=== PATIENT | male | born 1975 | race Two or more races ===

== ENCOUNTER 2022-12-26 13:29 | Emergency (ER) | payer OTHER ==
[~2022-12-26] VITALS: Ht 170.2 cm; Wt 103.6 kg
[2022-12-26 16:54] VITALS: BP 158/78; PULSE 111; RESP 15; TEMP 97.3; O2SAT 96
[2022-12-26] MEDS ORDERED: IBUP1TAB5 PO (17:04)
== END 2022-12-26 17:05 | disposition home or self-care (01) ==
LOC: ER 13:29
DX: M23.91 Unspecified internal derangement of right knee (principal); M23.92 Unspecified internal derangement of left knee
CPT/HCPCS: 73562